=== PATIENT | male | born 1990 | race Caucasian/White ===

== ENCOUNTER 2023-11-29 17:03 | Emergency (ER) | payer SELFPAY ==
[~2023-11-29] VITALS: Ht 175.3 cm; Wt 72.7 kg
[2023-11-29 17:08] VITALS: BP 155/78; PULSE 76; TEMP 97.7
== END 2023-11-29 17:57 | disposition home or self-care (01) ==
LOC: COL.ER 17:03
DX: S06.0X0A Concussion without loss of consciousness, initial encounter (principal); S63.501A Unspecified sprain of right wrist, initial encounter; W11.XXXA Fall on and from ladder, initial encounter; W22.8XXA Striking against or struck by other objects, initial encounter; Y92.59 Other trade areas as the place of occurrence of the external cause; Y99.0 Civilian activity done for income or pay